=== PATIENT | female | born 1995 | race Caucasian/White ===

== ENCOUNTER 2022-11-12 07:37 | Observation (INO) | payer MEDICAID ==
[~2022-11-12] VITALS: Ht 165.1 cm; Wt 67.1 kg
[2022-11-12] MEDS ORDERED: ONDANSETRON HCL 4MG/2ML INJ IV PRN (08:45)
[2022-11-12] MEDS ORDERED: LACTATED RINGERS 1,000 ML IV SCH (08:45)
[2022-11-12] MEDS ORDERED: ACETAMINOPHEN 325MG TABLET PO PRN (08:45)
== END 2022-11-12 14:00 | disposition home or self-care (01) ==
LOC: 8 EST LDRP 07:37
PROVIDERS: ADMIT Obstetrics & Gynecology; ATTEND Obstetrics & Gynecology
DX: O21.2 Late vomiting of pregnancy (principal); O26.893 Other specified pregnancy related conditions, third trimester; R19.7 Diarrhea, unspecified; R51.9 Headache, unspecified; O62.9 Abnormality of forces of labor, unspecified; Z3A.33 33 weeks gestation of pregnancy; Z98.891 History of uterine scar from previous surgery
CPT/HCPCS: 59025; 96361; 96374; G0378; J2405; 99281; J7120